=== PATIENT | female | born 1940 | race Caucasian/White ===

== ENCOUNTER → 2016-04-27 | Outpatient (CLI) | payer MEDICARE, OTHER ==
[2016-04-27 12:35] LABS: PROTHROMBIN TIME 27.8 SEC (11.4-15.4)
== END ==
LOC: OD 11:31
PROVIDERS: ATTEND Internal Medicine
DX: Z79.01 Long term (current) use of anticoagulants (principal)
CPT/HCPCS: 36415; 85610

== ENCOUNTER → 2016-05-25 | Outpatient (CLI) | payer MEDICARE, OTHER ==
[2016-05-25 12:56] LABS: PROTHROMBIN TIME 30.5 SEC (11.4-15.4)
== END ==
LOC: OD 11:15
PROVIDERS: ATTEND Internal Medicine
DX: Z79.01 Long term (current) use of anticoagulants (principal)
CPT/HCPCS: 36415; 85610

== ENCOUNTER → 2016-06-22 | Outpatient (CLI) | payer MEDICARE, OTHER ==
[2016-06-22 13:18] LABS: PROTHROMBIN TIME 29.4 SEC (11.4-15.4)
== END ==
LOC: OD 12:14
PROVIDERS: ATTEND Internal Medicine
DX: Z79.01 Long term (current) use of anticoagulants (principal)
CPT/HCPCS: 36415; 85610

== ENCOUNTER → 2016-07-20 | Outpatient (CLI) | payer MEDICARE, OTHER ==
[2016-07-20 13:29] LABS: PROTHROMBIN TIME 32.1 SEC (11.4-15.4)
== END ==
LOC: OD 12:38
PROVIDERS: ATTEND Internal Medicine
DX: Z79.01 Long term (current) use of anticoagulants (principal)
CPT/HCPCS: 36415; 85610

== ENCOUNTER → 2016-07-27 | Outpatient (CLI) | payer MEDICARE, OTHER ==
[2016-07-27 13:28] LABS: PROTHROMBIN TIME 33.7 SEC (11.4-15.4)
== END ==
LOC: OD 12:49
PROVIDERS: ATTEND Internal Medicine
DX: Z79.01 Long term (current) use of anticoagulants (principal)
CPT/HCPCS: 36415; 85610

== ENCOUNTER → 2016-08-10 | Outpatient (CLI) | payer MEDICARE, OTHER ==
[2016-08-10 14:35] LABS: PROTHROMBIN TIME 26.9 SEC (11.4-15.4)
== END ==
LOC: OD 12:44
PROVIDERS: ATTEND Internal Medicine
DX: Z79.01 Long term (current) use of anticoagulants (principal)
CPT/HCPCS: 36415; 85610

== ENCOUNTER → 2016-09-07 | Outpatient (CLI) | payer MEDICARE, OTHER ==
[2016-09-07 15:35] LABS: PROTHROMBIN TIME 24.7 SEC (11.4-15.4)
== END ==
LOC: OD 14:41
PROVIDERS: ATTEND Internal Medicine
DX: Z79.01 Long term (current) use of anticoagulants (principal); Z51.81 Encounter for therapeutic drug level monitoring
CPT/HCPCS: 36415; 85610

== ENCOUNTER 2016-09-18 15:38 | Inpatient (IN) | payer MEDICARE, OTHER ==
[2016-09-18] MEDS ORDERED: NORMAL SALINE 1000 ML 1,000 ML IV ONE ×2 (16:14→21:05)
--- NOTE | 2016-09-18 16:15 | ER Document Report ---
ED Medical Screen (RME) - General Chief Complaint: Nausea Stated Complaint: NAUSEA,DIARRHEA Time Seen by Provider: 09/18/16 16:11 Mode of Arrival: Ambulatory Information source: Patient TRAVEL OUTSIDE OF THE [place] IN LAST 30 DAYS: No - HPI Patient complains to provider of: nausea, diarrhea Onset: Last week - pt with 1 week h/o diarrhea, nausea, anorexia, and difficulty urinating - Related Data Allergies/Adverse Reactions: No Known Allergies Allergy (Verified 09/18/16 15:56) Past Medical History - Social History Chew tobacco use (# tins/day): No Frequency of alcohol use: None Drug Abuse: None - Past Medical History Cardiac Medical History: Reports: Hx Congestive Heart Failure, Hx Hypercholesterolemia, Hx Hypertension Endocrine Medical History: Reports: Hx Diabetes Mellitus Type 1, Hx Diabetes Mellitus Type 2 Renal/ Medical History: Denies: Hx Peritoneal Dialysis GI Medical History: Reports: Hx Gastroesophageal Reflux Disease Psychiatric Medical History: Denies: Hx Depression Past Surgical History: Reports: Hx Breast Surgery - right masectomy, Hx Cardiac Surgery - pacemaker, Hx Hysterectomy - Immunizations Hx Diphtheria, Pertussis, Tetanus Vaccination: Yes Physical Exam - Vital signs Vitals: Temp Pulse Resp BP Pulse Ox 97.4 F 64 20 100/69 96 09/18/16 15:58 09/18/16 15:58 09/18/16 15:58 09/18/16 15:58 09/18/16 15:58 Course - Vital Signs Vital signs: Temp Pulse Resp BP Pulse Ox 97.4 F 64 20 100/69 96 09/18/16 15:58 09/18/16 15:58 09/18/16 15:58 09/18/16 15:58 09/18/16 15:58
[2016-09-18 18:05] LABS: ABSOLUTE LYMPHOCYTES (AUTO) 1.2 10^3/uL (0.5-4.7); ABSOLUTE MONOCYTES (AUTO) 0.4 10^3/uL (0.1-1.4); BASOPHILS % (AUTO) 0.5 % (0-2); EOSINOPHILS % (AUTO) 0.6 % (0-6); HEMATOCRIT 42.2 % (36.0-47.0); HEMOGLOBIN 13.8 g/dL (12.0-15.5); HGB HCT DIFFERENCE -0.8; LYMPHOCYTES % (AUTO) 17.5 % (13-45); MEAN CORPUSCULAR HEMOGLOBIN 34.7 pg (27.0-33.4); MEAN CORPUSCULAR HGB CONC 32.6 g/dL (32.0-36.0); MEAN CORPUSCULAR VOLUME 106 fl (80-97); MONOCYTES % (AUTO) 6.7 % (3-13); RED BLOOD COUNT 3.96 10^6/uL (3.72-5.28); RED CELL DISTRIBUTION WIDTH 12.9 % (11.5-14.0); SEGMENTED NEUTROPHILS % (AUTO) 74.7 % (42-78); WHITE BLOOD COUNT 6.7 10^3/uL (4.0-10.5)
--- NOTE | 2016-09-18 18:37 | RADIOLOGY REPORT (SQ) ---
EXAM DESCRIPTION: ACUTE ABDOMEN SERIES COMPLETED DATE/TIME: 09/18/2016 6:19 pm REASON FOR STUDY: diarrhea, nausea COMPARISON: 11/13/2015 NUMBER OF VIEWS: Three views. TECHNIQUE: Frontal chest, supine abdomen and upright/decubitus abdomen radiographic images acquired. LIMITATIONS: None. FINDINGS: CHEST: Lungs clear of infiltrates. FREE AIR: None. No abnormal gas collections. BOWEL GAS PATTERN: Nonobstructive pattern. No dilated loops or air fluid levels. CALCIFICATIONS: A roughly triangular calcification projects over the superior pole of the left kidney ; this is nonspecific, and may represent renal calculus, calcified lymph node, intestinal contents, o r other. HARDWARE: None in the abdomen. Dual-chamber cardiac pacer is stable in position appearance. Right t horacic surgical changes are likewise unchanged. SOFT TISSUES: No gross mass or suggestion of organomegaly. BONES: No acute fracture. No worrisome bone lesions. OTHER: No other significant finding. IMPRESSION: NO RADIOGRAPHIC EVIDENCE FOR ACUTE ABDOMINAL DISEASE. TECHNICAL DOCUMENTATION: JOB ID: [id number] [employer]- All Rights Reserved
[2016-09-18 18:58] LABS: APPEARANCE,URINE SLIGHTLY-CLOUDY; BILIRUBIN,URINE NEGATIVE (NEGATIVE); GLUCOSE, URINE NEGATIVE (NEGATIVE); KETONES,URINE NEGATIVE (NEGATIVE); LEUKOCYTE ESTERASE,URINE MODERATE (NEGATIVE); NITRITE,URINE NEGATIVE (NEGATIVE); PROTEIN,URINE NEGATIVE (NEGATIVE); UROBILINOGEN,URINE NEGATIVE mg/dL (<2.0)
[2016-09-18] MEDS ORDERED: CALCIUM GLUCONATE 1000 MG/10 ML INJ IV ONE (19:03)
--- NOTE | 2016-09-18 19:09 | ER Document Report ---
ED General - General Chief Complaint: Nausea Stated Complaint: NAUSEA,DIARRHEA Time Seen by Provider: 09/18/16 16:11 Mode of Arrival: Ambulatory Information source: Patient Notes: This is a 75-year-old female with a history of hypertension, hyperlipidemia, diabetes, and CHF with a prior history of renal failure who presents with multiple symptoms today. She states that for the past few days she has felt similar symptoms to when she had renal failure a few years ago. She reports decreased appetite, nausea, one episode of vomiting and diarrhea. Also she states that when she urinates "not much comes out". She denies any fevers or chills. She denies any dysuria. She denies any chest pain or shortness of breath. TRAVEL OUTSIDE OF THE [place] IN LAST 30 DAYS: No - Related Data Allergies/Adverse Reactions: No Known Allergies Allergy (Verified 09/18/16 15:56) Past Medical History - General Information source: Patient - Social History Smoking Status: Never Smoker Chew tobacco use (# tins/day): No Frequency of alcohol use: None Drug Abuse: None Family History: Reviewed & Not Pertinent Patient has suicidal ideation: No Patient has homicidal ideation: No - Past Medical History Cardiac Medical History: Reports: Hx Congestive Heart Failure, Hx Hypercholesterolemia, Hx Hypertension Endocrine Medical History: Reports: Hx Diabetes Mellitus Type 1, Hx Diabetes Mellitus Type 2 Renal/ Medical History: Reports: Hx Renal Insufficiency. Denies: Hx Peritoneal Dialysis GI Medical History: Reports: Hx Gastroesophageal Reflux Disease Psychiatric Medical History: Denies: Hx Depression Past Surgical History: Reports: Hx Breast Surgery - right masectomy, Hx Cardiac Surgery - pacemaker, Hx Hysterectomy - Immunizations Hx Diphtheria, Pertussis, Tetanus Vaccination: Yes Hx Pneumococcal Vaccination: 01/16/13 Review of Systems - Review of Systems Constitutional: See HPI. denies: Chills, Fever EENT: No symptoms reported Cardiovascular: No symptoms reported. denies: Chest pain Respiratory: No symptoms reported Gastrointestinal: See HPI Genitourinary: See HPI. denies: Burning, Dysuria Musculoskeletal: No symptoms reported Skin: No symptoms reported Hematologic/Lymphatic: No symptoms reported Neurological/Psychological: No symptoms reported Physical Exam - Vital signs Vitals: Temp Pulse Resp BP Pulse Ox 97.4 F 64 20 100/69 96 09/18/16 15:58 09/18/16 15:58 09/18/16 15:58 09/18/16 15:58 09/18/16 15:58 - Notes Notes: PHYSICAL EXAMINATION: GENERAL: ELderly female, somewhat pale but well appearing, smiling and conversant, well-nourished and in no acute distress. HEAD: Atraumatic, normocephalic. EYES: Pupils equal round and reactive to light, extraocular movements intact, sclera anicteric, conjunctiva are normal. ENT: nares patent, oropharynx clear without exudates. Moist mucous membranes. NECK: Normal range of motion, supple without lymphadenopathy LUNGS: Breath sounds clear to auscultation bilaterally and equal. No wheezes rales or rhonchi. HEART: Regular rate and rhythm without murmurs ABDOMEN: Soft, nontender, normoactive bowel sounds. EXTREMITIES: Normal range of motion NEUROLOGICAL: Cranial nerves grossly intact. No gross focal motor or sensory deficits appreciated. PSYCH: Normal mood, normal affect. SKIN: Warm, Dry, no rashes or lesions noted. Course - Vital Signs Vital signs: Temp Pulse Resp BP Pulse Ox 97.4 F 64 19 108/53 L 100 09/18/16 15:58 09/18/16 15:58 09/18/16 20:01 09/18/16 20:01 09/18/16 20:01 - Laboratory Result Diagrams: 09/18/16 17:25 09/18/16 20:55 Laboratory results interpreted by me: 09/18/16 09/18/16 09/18/16 17:25 18:34 18:34 MCV 106 H MCH 34.7 H PT APTT Sodium 136.6 L Potassium 7.0 H* Chloride 109 H Carbon Dioxide 12 L BUN 68 H Creatinine 3.39 H Est GFR ( Amer) 16 L Est GFR (Non-Af Amer) 13 L Glucose 159 H Calcium 10.5 H Ur Leukocyte Esterase MODERATE H Urine Ascorbic Acid 40 H Digoxin 09/18/16 09/18/16 09/18/16 18:34 18:34 20:55 MCV MCH PT 23.9 H APTT 37.9 H Sodium Potassium 6.2 H* Chloride 112 H Carbon Dioxide 11 L BUN 63 H Creatinine 3.02 H Est GFR ( Amer) 18 L Est GFR (Non-Af Amer) 15 L Glucose 175 H Calcium Ur Leukocyte Esterase Urine Ascorbic Acid Digoxin 2.70 H* Discharge - Discharge Clinical Impression: Hyperkalemia, Elevated digoxin level Acute renal failure syndrome Qualifiers: Acute renal failure type: unspecified Qualified Code(s): N17.9 - Acute kidney failure, unspecified Condition: Fair Disposition: ADMITTED OBSERVATION Admitting Provider: Hospitalist - Dr. Patel Unit Admitted: [facility]
[2016-09-18 19:10] LABS: ALANINE AMINOTRANSFERASE 31 U/L (9-52); ALBUMIN 4.6 g/dL (3.5-5.0); ALKALINE PHOSPHATASE 59 U/L (38-126); ANION GAP 16 (5-19); ASPARTATE AMINO TRANSFERASE 28 U/L (14-36); BILIRUBIN,DIRECT 0.3 mg/dL (0.0-0.4); BILIRUBIN,TOTAL 0.8 mg/dL (0.2-1.3); BLOOD UREA NITROGEN 68 mg/dL (7-20); CALCIUM 10.5 mg/dL (8.4-10.2); CARBON DIOXIDE 12 mmol/L (22-30); CHLORIDE 109 mmol/L (98-107); CREATININE RESULT 3.39 mg/dL (0.52-1.25); GLUCOSE 159 mg/dL (75-110); SODIUM 136.6 mmol/L (137-145); TOTAL PROTEIN 8.1 g/dL (6.3-8.2)
[2016-09-18] MEDS ORDERED: SODIUM POLYSTYRENE SULFONATE 15 GM/60 ML PO ONE (19:23)
[2016-09-18] MEDS ORDERED: DEXTROSE 50%-WATER 25 GM/50 ML DISP.SYRIN IV ONE (19:23)
[2016-09-18] MEDS ORDERED: INSULIN REG, HUMAN 100 UNIT/ML 3 ML VIAL (PYX) IV ONE (19:23)
[2016-09-18] MEDS ORDERED: ALBUTEROL SULFATE 0.083% NEB 2.5 MG/3 ML AMPUL NEB ONE (19:24)
[2016-09-18 19:32] LABS: PARTIAL THROMBOPLASTIN TIME 37.9 SEC (23.5-35.8); PROTHROMBIN TIME 23.9 SEC (11.4-15.4)
[2016-09-18 19:34] LABS: MAGNESIUM 1.7 mg/dL (1.6-2.3)
[2016-09-18 19:49] LABS: DIGOXIN 2.7 ng/mL (0.8-2.0)
[2016-09-18 21:20] LABS: ANION GAP 16 (5-19); BLOOD UREA NITROGEN 63 mg/dL (7-20); CALCIUM 10.2 mg/dL (8.4-10.2); CARBON DIOXIDE 11 mmol/L (22-30); CHLORIDE 112 mmol/L (98-107); CREATININE RESULT 3.02 mg/dL (0.52-1.25); GLUCOSE 175 mg/dL (75-110); SODIUM 138.7 mmol/L (137-145)
[2016-09-18 21:24] LABS: POTASSIUM 6.2 mmol/L (3.6-5.0)
[2016-09-18] MEDS ORDERED: CEFTRIAXONE 1 GM/D5W RTU 50 ML IV ONE (21:45)
[2016-09-18] MEDS ORDERED: INSULIN LISPRO 100 UNIT/ML 3 ML VIAL SUBCUT PRN (23:35)
[2016-09-18] MEDS ORDERED: GLUCAGON,HUMAN RECOMB 1 MG INJ IM PRN (23:35)
[2016-09-18] MEDS ORDERED: DEXTROSE 40% GEL 15 GM TUBE PO PRN ×2 (23:35)
[2016-09-18] MEDS ORDERED: DEXTROSE 50%-WATER 25 GM/50 ML DISP.SYRIN IV PRN ×2 (23:35)
[2016-09-18] MEDS ORDERED: NORMAL SALINE 1000 ML 1,000 ML IV PRN (23:37)
[2016-09-18] MEDS ORDERED: ACETAMINOPHEN 325 MG TABLET PO PRN (23:42)
[2016-09-18] MEDS ORDERED: PHARMACY COMMUNICATION ORDER MC SCH (23:45)
--- NOTE | 2016-09-19 00:04 | PDOC H&P ---
History of Present Illness Admission Date/PCP: 09/18/16 21:55 COLIN LUIS, Patient complains of: n/v/d History of Present Illness: YOSHI CLAY is a 75 year old female with underlying stage III chronic kidney disease, hypertension, atrial fibrillation, on Coumadin for same , hyperlipidemia, type 2 diabetes mellitus, and reported congestive heart failure who presents to the emergency room for evaluation of above complaints. Patient has been discussed with emergency room physician who evaluated the patient. She describes a several day history of poor appetite, nausea, with one episode of vomiting, and diarrhea, along with general feeling of weakness and decreased oral intake. States that when she passes urine, "not much comes out." States urine is darker than usual. However, denies fever or chills, dysuria, chest or abdominal pain. No shortness of breath. States her symptoms are quite similar to an episode of worsening of her chronic kidney disease several years ago. Has been given 1 L of IV fluid and states she already feels better. Admission labs remarkable for worsening of her chronic kidney disease, along with hyperkalemia. Hospitalized on her primary care provider's service February 12 - February 19, 2014 with final diagnoses including sepsis, acute renal failure, and dehydration. History and physical and discharge summary have been reviewed. Laboratory results are listed in [employer] and are reviewed. X-ray summary results are listed below, with full report(s) reviewed. . EKG reviewed. Social history/personal habits: . 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 No use of alcohol tobacco or illicit drugs. No known drug allergies. Home medications initially autopopulated into [employer] may not accurately reflect patient's true medications, dosages, and/or frequencies. Emergency room nurse to reconcile medications, with patient having brought a handwritten copy of her medication list with her. REVIEW OF SYSTEMS: Constitutional: See history and present illness. Eyes: Wears glasses. ENT: No swallowing problems or complaints. Denies hearing loss. Pulmonary: No current complaints. Cardiovascular: No current complaints, including chest pain. Gastrointestinal: See history and present illness. Skin: No current complaints, including rashes. Hematologic: Easy bruising. Neurologic: No current complaints, including numbness or tingling. Musculoskeletal: No current or chronic joint complaints, such as arthritis. Psychiatric: Denies anxiety or depression. Endocrine: No current complaints, including polyuria. Genitourinary: See history and present illness. PHYSICAL EXAMINATION: 5 feet 6 inches tall. 68.1 kg. BMI 24.2 kg/m. Pulse 81 and regular. 100% saturation on room air. Respirations are 18 and unlabored. Blood pressure 96/ 61. Temperature 98.7. Well-nourished well-developed female appearing approximately her stated age. Pleasant awake alert and cooperative. Rather talkative. Mildly anxious, without agitation. is present at her side; patient approves. Skin is warm and dry. No grossly obvious evidence of rash in areas of skin examined. No subcutaneous nodules palpated. ENT: Hearing grossly normal to normal conversation. Tongue midline on protrusion pink and slightly moist. Eyes: No scleral icterus. Pupils equal and reactive to light at 4 mm. [place] conjunctivae. Neck is supple and nontender to gentle active range of motion and palpation. Midline trachea. No palpable thyroid nodule mass enlargement or tenderness. Lymphatic: No palpable cervical or clavicular nodes. Neck and lymphatic exams limited by patient body habitus. Psychiatric: Reasonable insight into acute and chronic medical issues. Oriented to time location and why here. Lungs: Auscultation reveals clear and equal breath sounds bilaterally. No use of accessory respiratory muscles. Cardiovascular: Heart regular rate and rhythm, without gallop murmur or rub. No carotid or abdominal aortic bruits. No ankle or pedal edema. Faintly palpable dorsalis pedis pulses. Abdomen:soft slightly distended nontender with positive bowel sounds. Unable to adequately evaluate abdomen for masses or organomegaly due to distention. Extremities: Feet are warm and dry. No calf tenderness to compression. No grossly obvious visual evidence of calf swelling. Gentle manipulation of lower extremities fails to reveal any obvious evidence of injury or instability to knees hips or ankles. Neurologic: Moves upper extremities grossly normally. Patellar reflexes absent. Absent Babinski. Light touch is intact at feet. Dorsiflexion and plantarflexion of feet 5 / 5 and symmetric. Past Medical History Cardiac Medical History: Reports: Atrial Fibrillation - On Coumadin, Congestive Heart Failure - Reported; no echocardiogram results in our system., Hyperlipidema, Hypertension Denies: DVT, Myocardial Infarction, Pulmonary Embolism Pulmonary Medical History: Denies: Asthma, Chronic Obstructive Pulmonary Disease (COPD), Sleep Apnea EENT Medical History: Reports: Eyes - Glasses Denies: Ears, Throat Neurological Medical History: Denies: Hemorrhagic CVA, Ischemic CVA, Seizures Endocrine Medical History: Reports: Diabetes Mellitus Type 2 Denies: Diabetes Mellitus Type 1, Hyperthyroidism, Hypothyroidism Renal/ Medical History: Reports: Chronic Kidney Disease - Stage III; not 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 GI Medical History: Denies: Cirrhosis, Gastroesophageal Reflux Disease, Hepatitis, Peptic Ulcer Disease Musculoskeltal Medical History: Denies: Arthritis Skin Medical History: Reports: None Psychiatric Medical History: Denies: Alcohol Dependency, Depression, General Anxiety Disorder, Substance Abuse, Tobacco Dependency Hematology: Reports: Other - Easy bruising Infectious Medical History: Denies: Clostridium Difficile, Hepatitis B, Hepatitis C, Methicillin- Resistant Staph Aureus Past Surgical History Past Surgical History: Reports: Hysterectomy Social History Information Source: Patient, Emergency Med Personnel, REPLACED BY [facility] Records Lives with: Spouse/Significant other Smoking Status: Never Smoker Frequency of Alcohol Use: None Hx Recreational Drug Use: No Drugs: None Hx Prescription Drug Abuse: No - Advance Directive Resuscitation Status: Full Code Surrogate healthcare decision maker:: Family History Family History: Reviewed & Not Pertinent Parental Family History Reviewed: Yes - Father of heart attack; mother of urinary tract infection. Children Family History Reviewed: Yes - Healthy Sibling(s) Family History Reviewed.: Yes - 3 siblings ; surviving sibling with chronic kidney disease. Medication/Allergy Home Medications: RX: Amlodipine Besylate [Norvasc 5 mg Tablet] 5 mg PO DAILY 09/20/16 RX: Ascorbic Acid [Vitamin C 500 mg Tablet] 500 mg PO BID 09/20/16 RX: Atorvastatin Calcium [Lipitor 10 mg Tablet] 10 mg PO Q2D 09/20/16 RX: Calcium Carbonate/Vitamin D3 [Os-Luis 500-Vit D3 200 Caplet] 1 tab PO MEALS 09/20/16 RX: Digoxin [Lanoxin 0.125 mg Tablet] 0.125 mg PO DAILY 09/20/16 RX: Ferrous Sulfate [Feosol 325 mg Tablet] 325 mg PO DAILY 09/20/16 RX: Glipizide [Glucotrol Xl 2.5 mg Tab.er] 2.5 mg PO DAILY 09/20/16 RX: Magnesium Oxide [Mag-Ox 400 mg Tablet] 400 mg PO BID 09/20/16 RX: Metoprolol Tartrate [Lopressor 100 mg Tablet] 100 mg PO Q12 09/20/16 RX: Multivits-Min/Iron/FA/Lutein [Centrum Silver Women Tablet] 1 tab PO DAILY RX: Niacin [Niacin ER] 2,000 mg PO QHS 09/20/16 RX: Potassium Chloride [Klor-Con 10] 10 meq PO BID 09/20/16 RX: Spironolactone [Aldactone 25 mg Tablet] 25 mg PO DAILY 09/20/16 RX: Telmisartan [Micardis 80 mg Tablet] 80 mg PO DAILY 09/20/16 RX: Warfarin Sodium [Coumadin 2.5 mg Tablet] 2.5 mg PO MOTUWETHFRSA 09/20/16 RX: Warfarin Sodium [Coumadin 2.5 mg Tablet] 5 mg PO GARY 09/20/16 Allergies/Adverse Reactions: No Known Allergies Allergy (Verified 09/18/16 15:56) Physical Exam Vital Signs: Temp Pulse Resp BP Pulse Ox 98.7 F 64 16 96/61 L 97 09/18/16 22:00 09/18/16 15:58 09/18/16 22:33 09/18/16 22:33 09/18/16 22:33 Results Impressions: Acute Abdomen Series 09/18/16 16:14 IMPRESSION: NO RADIOGRAPHIC EVIDENCE FOR ACUTE ABDOMINAL DISEASE. Assessment & Plan - Diagnosis (1) Acute worsening of stage 3 chronic kidney disease Is this a current diagnosis for this admission?: YesPlan: Suspect due primarily to dehydration from mild vomiting and diarrhea, along with decreased p.o. intake for the past several days. IV fluid. Serial chemistry. Renal ultrasound. I have strongly encouraged patient not to get out of bed without notifying staff , to avoid a fall with injury. Knee high SCDs for DVT prophylaxis; with patient anticoagulated on Coumadin, no need for Lovenox or heparin. Impression and plans were discussed with patient and , both of whom concur. Time spent in evaluation and management of patient: 68 minutes. (2) Elevated digoxin level Is this a current diagnosis for this admission?: YesPlan: Repeat dig level. We will obviously hold digoxin dose. (3) Hyperkalemia Is this a current diagnosis for this admission?: YesPlan: Serial chemistry. Decreasing with treatment so far. (4) Urinary tract infectious disease Qualifiers: Urinary tract infection type: site unspecified Is this a current diagnosis for this admission?: YesPlan: Blood and urine cultures. Rocephin. (5) Diabetes mellitus type 2 in nonobese Is this a current diagnosis for this admission?: YesPlan: Diabetic cardiac diet. Accu-Cheks with appropriate sliding scale coverage. Resume home medications as appropriate once these have been determined and reviewed. (6) Anticoagulated Is this a current diagnosis for this admission?: YesPlan: With patient on Rocephin, will repeat PT/INR in the morning. Resume home medications as appropriate once these have been determined and reviewed. (7) Atrial fibrillation Qualifiers: Atrial fibrillation type: unspecified Qualified Code(s): I48.91 - Unspecified atrial fibrillation Is this a current diagnosis for this admission?: YesPlan: Paced rhythm at present. Resume home medications as appropriate once these have been determined and reviewed.
[2016-09-19 01:51] LABS: ANION GAP 14 (5-19); BLOOD UREA NITROGEN 60 mg/dL (7-20); CALCIUM 9.6 mg/dL (8.4-10.2); CHLORIDE 117 mmol/L (98-107); CREATININE RESULT 2.51 mg/dL (0.52-1.25); GLUCOSE 101 mg/dL (75-110); SODIUM 140.6 mmol/L (137-145)
[2016-09-19 02:21] LABS: CARBON DIOXIDE 10 mmol/L (22-30); POTASSIUM 6.1 mmol/L (3.6-5.0)
--- NOTE | 2016-09-19 02:34 | RADIOLOGY REPORT (SQ) ---
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 TECHNIQUE: Grayscale images acquired of the kidneys and bladder and recorded on PACS. Additional kristin ected color Doppler images recorded. LIMITATIONS: None. FINDINGS: RIGHT KIDNEY: Measures 11.5 x 4.9 x 4.5 cm. Increased cortical echogenicity. No hydronephr osis. No calcifications. LEFT KIDNEY: Measures 10.7 x 4.5 x 4.6 cm. Increased cortical echogenicity. There is a 1.6 x 1.4 x 1.1 cm cyst. No hydronephrosis. No calcifications. BLADDER: Partially distended. The ureteral jets were not visualized at this time. IMPRESSION: No hydronephrosis. Small left renal cyst. Increased bilateral renal cortical echogenic ity, may be seen with medical renal disease. TECHNICAL DOCUMENTATION: JOB ID: [id number] [employer]- All Rights Reserved
[2016-09-19] MEDS ORDERED: DEXTROSE 50%-WATER 25 GM/50 ML DISP.SYRIN IV ONE (03:00)
[2016-09-19] MEDS ORDERED: INSULIN REG, HUMAN 100 UNIT/ML 3 ML VIAL (PYX) IV ONE (03:00)
[2016-09-19 08:28] LABS: ANION GAP 9 (5-19); BLOOD UREA NITROGEN 52 mg/dL (7-20); CALCIUM 9.4 mg/dL (8.4-10.2); CARBON DIOXIDE 12 mmol/L (22-30); CHLORIDE 121 mmol/L (98-107); GLUCOSE 80 mg/dL (75-110); POTASSIUM 5.4 mmol/L (3.6-5.0); SODIUM 142.3 mmol/L (137-145)
--- NOTE | 2016-09-19 09:20 | EKG REPORT ---
SEVERITY:- ABNORMAL ECG - VENTRICULAR-PACED RHYTHM : Confirmed by: Marlon Dougherty 19-Sep-2016 09:19:45
[2016-09-19] MEDS: AMLODIPINE BESYLATE 5 MG TABLET PO SCH (09:48)
[2016-09-19] MEDS: FERROUS SULFATE 325 MG TABLET PO SCH (09:49)
[2016-09-19] MEDS: ATORVASTATIN CALCIUM 20 MG TABLET PO SCH (09:49)
[2016-09-19] MEDS: METOPROLOL TARTRATE 100 MG TABLET PO SCH ×2 (09:49→18:34)
[2016-09-19] MEDS ORDERED: GLIPIZIDE XL 2.5 MG TAB.ER.24 PO ONE (14:00)
[2016-09-19] MEDS: NORMAL SALINE 1000 ML 1,000 ML IV PRN (14:34)
--- NOTE | 2016-09-19 16:18 | PROGRESS NOTE E ---
Progress Note NAME: YOSHI CLAY : 1940 AGE: 75Y DATE: 09/19/2016 ROOM: 324 SUBJECTIVE: The patient is lying in bed. She states that she feels better now than when she came in. The patient denies today any nausea or vomiting, no diarrhea, shortness of breath, dizziness or chest pain. The patient's symptoms of vomiting and diarrhea have resolved. The patient has been afebrile. Her blood pressures have been in a good range, and the patient does not voice any other concerns at this time. REVIEW OF SYSTEMS: Rest of review of systems is negative. MEDICATIONS: Medications have been reviewed. OBJECTIVE: GENERAL: The patient is a well-developed, well-nourished, very pleasant 75-year-old female who is awake, alert and oriented to person, place, time and situation. She is verbal and conversational and does to appear to be in any acute distress. VITAL SIGNS: Temperature is 97.3, pulse 83, respirations 18, blood pressure 104/40, oxygen saturation is 99% on room air. SKIN: Warm and dry. No rashes, not diaphoretic. HEENT: Conjunctivae are pink. Tongue is midline. No JVD. CARDIOVASCULAR: Heart is regular. There is no murmur or rub. CHEST: Clear, symmetrical and unlabored. ABDOMEN: Soft, nontender, nondistended. BACK: No CVA tenderness or sacral edema. EXTREMITIES: No clubbing, cyanosis or edema. PSYCHIATRIC: Appropriate affect, pleasant mood. DIAGNOSTIC DATA: Lab values are as follows: Hematology obtained on 09/18/2016: WBC is 6.7, hemoglobin 13.8, hematocrit 42.2, and platelet count is 181,000. Coagulation obtained on 09/19/2016: PT 30, INR 2.7. Chemistries obtained on 09/18/2016: Sodium is 142, potassium 5.4, chloride 121, carbon dioxide 12, BUN 52, creatinine 2.1, glucose 80, calcium 9.4. Toxicology obtained on 09/18/2016: Digoxin level is 2.7. Urine culture obtained on 09/18/2016 is pending. Blood cultures obtained on 09/19/2016 is pending. Stool culture obtained on 09/19/2016 is pending. IMPRESSION AND PLAN: 1. ACUTE RENAL FAILURE. Will continue to hydrate. It appears that the patient's baseline creatinine is in the 1.5. She has improved significantly from 3.3 as she came in. We will continue to gently hydrate, repeat chemistries in the a.m. and follow. Will hold spironolactone, lisinopril and Micardis at this time. 2. HYPERKALEMIA SECONDARY TO #1. Once again, we will hold KENYETTA and ARB as well as potassium supplementation. Repeat in the a.m. 3. CHRONIC KIDNEY DISEASE STAGE 3. Once again, it appears that the patient's baseline creatinine is in the 1.5 range according to outpatient labs from 2016. 4. NAUSEA AND VOMITING. Possibly just a gastroenteritis. Those symptoms have appeared to have resolved at this time. Stool studies are pending. 5. DIG TOXICITY. Will hold dig for now, hydrate and repeat level in the a.m. 6. HYPERTENSION. The patient has actually been hypotensive but this is improving with volume. Most blood pressure medicines are on hold. Will watch this closely for rebounding. 7. ATRIAL FIBRILLATION. The patient is currently ventricularly paced. Will continue anticoagulation and beta-franko and follow. 8. HYPERLIPIDEMIA. Will continue atorvastatin. 9. DIABETES MELLITUS TYPE 2. Blood sugars have been in a good range. Will continue home Glipizide as well as sliding scale coverage. 10. DVT PROPHYLAXIS. The patient is therapeutic on Coumadin. Will repeat INR in the a.m. 11. POSSIBLE URINARY TRACT INFECTION. Currently awaiting urine culture. Will continue ceftriaxone for now and follow. DISPOSITION: The patient is a FULL CODE. Pending the patient's symptomatology and diagnostic findings, will re-evaluate in the a.m. TIME: Time spent on this followup including assessment, plan, physical examination, patient education and review of previous records is 35 minutes. DICTATING PHYSICIAN: COLIN SANABRIA NP [id number] PHY#: [id number] ID: [id number] JOB#: [id number] ACCT: [id number] cc: >
[2016-09-19] MEDS: WARFARIN SODIUM 2.5 MG TABLET PO SCH (21:47)
[2016-09-19] MEDS: CEFTRIAXONE 1 GM/D5W RTU 1 GM/50 ML RTUPB IV SCH (21:47)
[2016-09-20] MEDS: NORMAL SALINE 1000 ML 1,000 ML IV PRN (06:10)
[2016-09-20 07:06] LABS: ANION GAP 10 (5-19); CARBON DIOXIDE 13 mmol/L (22-30); CHLORIDE 120 mmol/L (98-107); CREATININE RESULT 1.34 mg/dL (0.52-1.25); GLUCOSE 89 mg/dL (75-110); SODIUM 142.9 mmol/L (137-145)
[2016-09-20 07:18] LABS: PROTHROMBIN TIME 27.5 SEC (11.4-15.4)
[2016-09-20 07:25] LABS: BLOOD UREA NITROGEN 32 mg/dL (7-20)
[2016-09-20] MEDS: ATORVASTATIN CALCIUM 20 MG TABLET PO SCH (09:40)
[2016-09-20] MEDS: FERROUS SULFATE 325 MG TABLET PO SCH (09:41)
[2016-09-20] MEDS: MAGNESIUM SULFATE/D5W 1 GM/100 ML RTUPB IV SCH ×2 (09:43→11:12)
[2016-09-20] MEDS: AMLODIPINE BESYLATE 5 MG TABLET PO SCH (09:44)
[2016-09-20] MEDS: GLIPIZIDE XL 2.5 MG TAB.ER.24 PO SCH (09:44)
[2016-09-20] MEDS: METOPROLOL TARTRATE 100 MG TABLET PO SCH ×2 (09:44→17:23)
--- NOTE | 2016-09-20 14:58 | PROGRESS NOTE E ---
Progress Note NAME: YOSHI CLAY : 1940 AGE: 75Y DATE: 09/20/2016 ROOM: 324 SUBJECTIVE: The patient is currently lying in bed. She states she feels much better today. All of her symptoms have resolved. She denies any nausea, vomiting or diarrhea. No shortness of breath, dizziness, chest pain. No fevers or chills. The patient has been afebrile. Her blood pressure has been in a good range. The patient does not voice any other concerns at this time. REVIEW OF SYSTEMS: The rest of the review of systems is negative. MEDICATIONS: Medications have been reviewed. OBJECTIVE: The patient is a 75-year-old female who is awake, alert, and oriented to person, place, time, and situation. She is verbal, conversational, ambulatory and does not appear to be in any acute distress. VITAL SIGNS: Temperature is 97.4, pulse 81, respirations 20, blood pressure 101/50, oxygen saturation is 98% on room air. SKIN: Warm and dry. No rashes. Not diaphoretic. HEENT: Pupils equal, round and reactive to light and accommodation. Conjunctivae are pale. No JVP CARDIOVASCULAR: Heart is regular. There is no murmur or rub. CHEST: Clear, symmetrical and unlabored. ABDOMEN: Soft, nontender, nondistended. BACK: No CVA tenderness or sacral edema. EXTREMITIES: No clubbing, cyanosis or edema. DIAGNOSTICS: Lab values are as follows. Chemistry obtained on 09/20/2016: Sodium is 142, potassium 5.0, chloride is 102, carbon dioxide 13, BUN 32, creatinine 1.34, glucose 99, calcium is 9.0, and magnesium is 1.0. ASSESSMENT: 1. ACUTE RENAL FAILURE. It appears that the patient's baseline creatinine is in the 1.5 range. She is improved significantly. We will continue to gently hydrate overnight. At this time, spironolactone, lisinopril, and Micardis are on hold. 2. HYPERKALEMIA SECONDARY TO #1. Once again KENYETTA, ARB and potassium supplementation are on hold. 3. HYPOMAGNESEMIA. This has been repleted. We will repeat magnesium level this afternoon and follow. 4. CHRONIC KIDNEY DISEASE, STAGE 3. The patient is followed outpatient by Dr. Perez. She needs to follow with him at discharge. It appears her baseline is in the 1.5 range, most likely this was caused by an acute insult. 5. NAUSEA AND VOMITING. I feel the patient most likely just had gastroenteritis. She responded very well to fluids, do not think this is uremic event. However, she is comfortable following the Nephrology in an outpatient setting. 6. DIGOXIN TOXICITY. Digoxin is on hold for now. We will repeat her level and follow. 7. HYPERTENSION. The patient was actually hypotensive, but this is improved with volume. Watch blood pressure closely and follow. 8. ATRIAL FIBRILLATION. The patient is currently ventricularly paced. We will continue her anticoagulation and beta-franko and follow. 9. HYPERLIPIDEMIA. We will continue atorvastatin. 10. DIABETES MELLITUS, TYPE 2. Blood sugars have been in good range. Continue meds as well as sliding scale coverage. 11. DVT PROPHYLAXIS. The patient is therapeutic on Coumadin. 12. METABOLIC ACIDOSIS. The patient's CO2 is still quite high; hopefully, this will improve with volume and we will defer bicarb for now. DISPOSITION: The patient is a FULL CODE. Pending patient's symptomatology and diagnostic findings, most likely the patient can be discharged in the a.m. if there is no electrolyte derangement. Time spent on this followup including assessment, plan, physical examination, patient education, and family meeting is 25 minutes. DICTATING PHYSICIAN: COLIN SANABRIA NP [id number] PHY#: [id number] ID: [id number] JOB#: [id number] ACCT: [id number] cc: >
[2016-09-20 16:05] LABS: ANION GAP 11 (5-19); BLOOD UREA NITROGEN 28 mg/dL (7-20); CALCIUM 9.2 mg/dL (8.4-10.2); CARBON DIOXIDE 15 mmol/L (22-30); CHLORIDE 117 mmol/L (98-107); CREATININE RESULT 1.15 mg/dL (0.52-1.25); GLUCOSE 105 mg/dL (75-110); MAGNESIUM 1.7 mg/dL (1.6-2.3); POTASSIUM 5.5 mmol/L (3.6-5.0); SODIUM 142.6 mmol/L (137-145)
[2016-09-20] MEDS: WARFARIN SODIUM 2.5 MG TABLET PO SCH (21:58)
[2016-09-20] MEDS: CEFTRIAXONE 1 GM/D5W RTU 1 GM/50 ML RTUPB IV SCH (21:58)
[2016-09-21 06:13] LABS: ALANINE AMINOTRANSFERASE 28 U/L (9-52); ALBUMIN 3.4 g/dL (3.5-5.0); ALKALINE PHOSPHATASE 59 U/L (38-126); ANION GAP 11 (5-19); ASPARTATE AMINO TRANSFERASE 27 U/L (14-36); BILIRUBIN,DIRECT 0.2 mg/dL (0.0-0.4); BILIRUBIN,TOTAL 0.4 mg/dL (0.2-1.3); BLOOD UREA NITROGEN 22 mg/dL (7-20); CALCIUM 9.2 mg/dL (8.4-10.2); CARBON DIOXIDE 15 mmol/L (22-30); CHLORIDE 117 mmol/L (98-107); CREATININE RESULT 1.08 mg/dL (0.52-1.25); GLUCOSE 89 mg/dL (75-110); MAGNESIUM 1.4 mg/dL (1.6-2.3); POTASSIUM 4.9 mmol/L (3.6-5.0); SODIUM 143.4 mmol/L (137-145); TOTAL PROTEIN 6.4 g/dL (6.3-8.2)
--- NOTE | 2016-09-21 08:43 | PDOC DISCHARGE SUMMARY ---
General - Admit/Disc Date/PCP Admission Date/Primary Care Provider: 09/19/16 08:02 COLIN LUIS, Discharge Date: 09/21/16 - Discharge Diagnosis (1) Acute renal failure Is this a current diagnosis for this admission?: Yes (2) Elevated digoxin level Is this a current diagnosis for this admission?: Yes (3) Dehydration Is this a current diagnosis for this admission?: Yes (5) Atrial fibrillation Is this a current diagnosis for this admission?: Yes - Additional Information Resuscitation Status: Full Code Discharge Diet: Diabetic Discharge Activity: Activity As Tolerated Home Medications: Amlodipine Besylate [Norvasc 5 mg Tablet] 5 mg PO DAILY 09/20/16 Ascorbic Acid [Vitamin C 500 mg Tablet] 500 mg PO BID 09/20/16 Atorvastatin Calcium [Lipitor 10 mg Tablet] 10 mg PO Q2D 09/20/16 Calcium Carbonate/Vitamin D3 [Os-Luis 500-Vit D3 200 Caplet] 1 tab PO MEALS 09/20 Digoxin [Lanoxin 0.125 mg Tablet] 0.125 mg PO DAILY 09/20/16 Ferrous Sulfate [Feosol 325 mg Tablet] 325 mg PO DAILY 09/20/16 Glipizide [Glucotrol Xl 2.5 mg Tab.er] 2.5 mg PO DAILY 09/20/16 Magnesium Oxide [Mag-Ox 400 mg Tablet] 400 mg PO BID 09/20/16 Metoprolol Tartrate [Lopressor 100 mg Tablet] 100 mg PO Q12 09/20/16 Multivits-Min/Iron/FA/Lutein [Centrum Silver Women Tablet] 1 tab PO DAILY Niacin [Niacin ER] 2,000 mg PO QHS 09/20/16 Potassium Chloride [Klor-Con 10] 10 meq PO BID 09/20/16 Spironolactone [Aldactone 25 mg Tablet] 25 mg PO DAILY 09/20/16 Telmisartan [Micardis 80 mg Tablet] 80 mg PO DAILY 09/20/16 Warfarin Sodium [Coumadin 2.5 mg Tablet] 2.5 mg PO MOTUWETHFRSA 09/20/16 Warfarin Sodium [Coumadin 2.5 mg Tablet] 5 mg PO GARY 09/20/16 History of Present Illness History of Present Illness: YOSHI CLAY is a 75 year old female Hospital Course Hospital Course: The patient did well during the hospitalization. She was well hydrated. Her digoxin level has decreased down 0.9. Her creatinine has improved to normal levels. Her nausea vomiting and diarrhea have resolved. A urinary tract infection was controlled. Her blood sugars were well controlled. She continued to improve over the next several days on the day of discharge she appeared comfortable in no acute distress vital signs stable neck supple no JVD no bruits chest clear to auscultation and percussion heart S1-S2 irregularly irregular abdomen soft bowel sounds positive. Physical Exam Vital Signs: Temp Pulse Resp BP Pulse Ox 98.1 F 83 19 107/74 98 09/21/16 07:29 09/21/16 07:29 09/21/16 07:29 09/21/16 07:29 09/21/16 07:29 Intake & Output 09/20/16 09/21/16 09/22/16 06:59 06:59 06:59 Intake Total 3220 2291 Output Total 2300 3200 Balance 920 -909 Weight 68 kg 73.4 kg General appearance: PRESENT: no acute distress Head exam: PRESENT: atraumatic Eye exam: PRESENT: conjunctiva pink Neck exam: ABSENT: carotid bruit Respiratory exam: PRESENT: clear to auscultation elisabeth Cardiovascular exam: PRESENT: irregular rhythm Pulses: PRESENT: +1 pedal pulses bilateral GI/Abdominal exam: PRESENT: normal bowel sounds, soft Extremities exam: PRESENT: full ROM Musculoskeletal exam: PRESENT: ambulatory Neurological exam: PRESENT: alert, awake Results Laboratory Results: 09/21/16 05:04 09/20/16 09/21/16 15:42 05:04 Sodium 142.6 143.4 Potassium 5.5 H 4.9 Chloride 117 H 117 H Carbon Dioxide 15 L 15 L Anion Gap 11 11 BUN 28 H 22 H Creatinine 1.15 1.08 Est GFR ( Amer) 56 L > 60 Est GFR (Non-Af Amer) 46 L 50 L Glucose 105 89 Calcium 9.2 9.2 Magnesium 1.7 1.4 L Total Bilirubin 0.4 AST 27 ALT 28 Alkaline Phosphatase 59 Total Protein 6.4 Albumin 3.4 L 09/19/16 14:06 Stool - Stool - Final Impressions: Acute Abdomen Series 09/18/16 16:14 IMPRESSION: NO RADIOGRAPHIC EVIDENCE FOR ACUTE ABDOMINAL DISEASE. Renal Ultrasound 09/19/16 00:00 IMPRESSION: No hydronephrosis. Small left renal cyst. Increased bilateral renal cortical echogenicity, may be seen with medical renal disease. Plan Discharge Plan: Discharge home to continue present medications. We will review all of her home medications as an outpatient. Stop lisinopril. Follow-up in the office in 1 week and as needed thank you
[2016-09-21] MEDS: FERROUS SULFATE 325 MG TABLET PO SCH (09:30)
[2016-09-21] MEDS: GLIPIZIDE XL 2.5 MG TAB.ER.24 PO SCH (09:30)
[2016-09-21] MEDS: METOPROLOL TARTRATE 100 MG TABLET PO SCH (09:30)
[2016-09-21] MEDS: ATORVASTATIN CALCIUM 20 MG TABLET PO SCH (09:31)
[2016-09-21] MEDS: AMLODIPINE BESYLATE 5 MG TABLET PO SCH (09:31)
[2016-09-21 10:23] VITALS: BP 95/45
== END 2016-09-21 10:34 | disposition home or self-care (01) | DRG 683 ==
LOC: ER 15:38 → UNDOADMOB 21:55 → EH 21:55 → 3W 23:52 → EH 23:52 → OBSVTOIN 09-19 08:02
PROVIDERS: ADMIT Family Medicine; ATTEND Family Medicine
DX: N17.9 Acute kidney failure, unspecified (principal); E87.2 Acidosis; N39.0 Urinary tract infection, site not specified; I12.9 Hypertensive chronic kidney disease with stage 1 through stage 4 chronic kidney disease, or unspecified chronic kidney disease; E11.22 Type 2 diabetes mellitus with diabetic chronic kidney disease; N18.3 Chronic kidney disease, stage 3 (moderate); T46.0X5A Adverse effect of cardiac-stimulant glycosides and drugs of similar action, initial encounter; E83.42 Hypomagnesemia; I48.91 Unspecified atrial fibrillation; E86.0 Dehydration; E87.5 Hyperkalemia; Z79.01 Long term (current) use of anticoagulants; Z79.4 Long term (current) use of insulin; Z79.899 Other long term (current) drug therapy; Z90.710 Acquired absence of both cervix and uterus
CPT/HCPCS: 36415; 74022; 76770; 80048; 80053; 80162; 81001; 82962; 83735; 85025; 85610; 85730; 87040; 87045; 87086; 87205; 93005; 93010; 94640; 96365; 96375; 99285; G0378; J0696; J1815; J3475; J3490; J7030

== ENCOUNTER → 2016-09-28 | Outpatient (CLI) | payer MEDICARE, OTHER ==
[2016-09-28 13:55] LABS: PROTHROMBIN TIME 19.7 SEC (11.4-15.4)
[2016-09-28 14:24] LABS: ALANINE AMINOTRANSFERASE 36 U/L (9-52); ALKALINE PHOSPHATASE 67 U/L (38-126); ANION GAP 12 (5-19); ASPARTATE AMINO TRANSFERASE 30 U/L (14-36); BILIRUBIN,DIRECT 0.3 mg/dL (0.0-0.4); BILIRUBIN,TOTAL 0.7 mg/dL (0.2-1.3); BLOOD UREA NITROGEN 21 mg/dL (7-20); CALCIUM 9.9 mg/dL (8.4-10.2); CARBON DIOXIDE 24 mmol/L (22-30); CHLORIDE 106 mmol/L (98-107); CHOLESTEROL 131.71 mg/dL (0-200); CREATININE RESULT 1.33 mg/dL (0.52-1.25); Direct HDL 50 mg/dL (>40); GLUCOSE 94 mg/dL (75-110); SODIUM 141.5 mmol/L (137-145); TOTAL PROTEIN 7.2 g/dL (6.3-8.2); TRIGLYCERIDES 231 mg/dL (<150)
[2016-09-28 14:41] LABS: VLDL CHOLESTEROL 46.2 mg/dL (10-31)
[2016-09-28 14:42] LABS: DIRECT LDL < 30 mg/dL (<100)
== END ==
LOC: OD 13:02
PROVIDERS: ATTEND Internal Medicine
DX: Z79.01 Long term (current) use of anticoagulants (principal); E11.9 Type 2 diabetes mellitus without complications; I48.2 Chronic atrial fibrillation; I42.8 Other cardiomyopathies; I36.1 Nonrheumatic tricuspid (valve) insufficiency; I34.0 Nonrheumatic mitral (valve) insufficiency; I10 Essential (primary) hypertension; I25.2 Old myocardial infarction; I44.2 Atrioventricular block, complete; Z95.810 Presence of automatic (implantable) cardiac defibrillator; I27.2 Other secondary pulmonary hypertension; E78.5 Hyperlipidemia, unspecified; Z79.899 Other long term (current) drug therapy
CPT/HCPCS: 36415; 80053; 80061; 83036; 85610

== ENCOUNTER → 2016-10-04 | Outpatient (CLI) | payer MEDICARE, OTHER ==
[2016-10-04 14:11] LABS: ANION GAP 13 (5-19); BLOOD UREA NITROGEN 28 mg/dL (7-20); CARBON DIOXIDE 20 mmol/L (22-30); CHLORIDE 107 mmol/L (98-107); CREATININE RESULT 1.38 mg/dL (0.52-1.25); DIGOXIN 1.31 ng/mL (0.8-2.0); MAGNESIUM 1.9 mg/dL (1.6-2.3); POTASSIUM 5.2 mmol/L (3.6-5.0); SODIUM 139.8 mmol/L (137-145)
== END ==
LOC: OD 12:54
PROVIDERS: ATTEND Internal Medicine
DX: N18.3 Chronic kidney disease, stage 3 (moderate) (principal); R78.89 Finding of other specified substances, not normally found in blood; Z79.01 Long term (current) use of anticoagulants
CPT/HCPCS: 36415; 80051; 80162; 82565; 83735; 84520; 85610

== ENCOUNTER → 2016-10-20 | Outpatient (CLI) | payer MEDICARE, OTHER ==
[2016-10-20 14:23] LABS: PROTHROMBIN TIME 28.2 SEC (11.4-15.4)
== END ==
LOC: OD 12:59
PROVIDERS: ATTEND Internal Medicine
DX: Z79.01 Long term (current) use of anticoagulants (principal); Z51.81 Encounter for therapeutic drug level monitoring
CPT/HCPCS: 36415; 85610

== ENCOUNTER → 2016-11-08 | Outpatient (CLI) | payer MEDICARE, OTHER ==
[2016-11-08 14:20] LABS: PROTHROMBIN TIME 29.9 SEC (11.4-15.4)
== END ==
LOC: OD 13:12
PROVIDERS: ATTEND Internal Medicine
DX: Z79.01 Long term (current) use of anticoagulants (principal)
CPT/HCPCS: 36415; 85610

== ENCOUNTER → 2016-12-06 | Outpatient (CLI) | payer MEDICARE, OTHER | LOC: OD 11:45 | PROVIDERS: ATTEND Internal Medicine | DX: Z79.01 Long term (current) use of anticoagulants (principal); Z51.81 Encounter for therapeutic drug level monitoring | CPT/HCPCS: 36415; 85610 ==

== ENCOUNTER → 2017-01-03 | Outpatient (CLI) | payer MEDICARE, OTHER ==
[2017-01-03 16:23] LABS: PROTHROMBIN TIME 30.1 SEC (11.4-15.4)
== END ==
LOC: OD 14:54
PROVIDERS: ATTEND Internal Medicine
DX: Z51.81 Encounter for therapeutic drug level monitoring (principal); Z79.01 Long term (current) use of anticoagulants
CPT/HCPCS: 36415; 85610

== ENCOUNTER → 2017-01-26 | Outpatient (CLI) | payer MEDICARE, OTHER ==
[2017-01-26 14:20] LABS: ALANINE AMINOTRANSFERASE 32 U/L (9-52); ALBUMIN 4.2 g/dL (3.5-5.0); ALKALINE PHOSPHATASE 80 U/L (38-126); ASPARTATE AMINO TRANSFERASE 27 U/L (14-36); BILIRUBIN,DIRECT 0.5 mg/dL (0.0-0.4); BILIRUBIN,TOTAL 1.1 mg/dL (0.2-1.3); CHOLESTEROL 108.87 mg/dL (0-200); Direct HDL 55 mg/dL (>40); TOTAL PROTEIN 7.2 g/dL (6.3-8.2); TRIGLYCERIDES 139 mg/dL (<150)
[2017-01-26 14:36] LABS: DIRECT LDL < 30 mg/dL (<100)
== END ==
LOC: OD 13:01
PROVIDERS: ATTEND Specialist
DX: I48.2 Chronic atrial fibrillation (principal); Z79.899 Other long term (current) drug therapy; I42.8 Other cardiomyopathies; I36.1 Nonrheumatic tricuspid (valve) insufficiency; I34.0 Nonrheumatic mitral (valve) insufficiency; E78.4 Other hyperlipidemia; I10 Essential (primary) hypertension; I25.2 Old myocardial infarction; I44.2 Atrioventricular block, complete; E11.9 Type 2 diabetes mellitus without complications; Z95.810 Presence of automatic (implantable) cardiac defibrillator
CPT/HCPCS: 36415; 80061; 80076; 83036

== ENCOUNTER → 2017-01-31 | Outpatient (CLI) | payer MEDICARE, OTHER ==
[2017-01-31 14:14] LABS: PROTHROMBIN TIME 30.3 SEC (11.4-15.4)
== END ==
LOC: OD 13:02
PROVIDERS: ATTEND Internal Medicine
DX: Z51.81 Encounter for therapeutic drug level monitoring (principal); Z79.01 Long term (current) use of anticoagulants
CPT/HCPCS: 36415; 85610

== ENCOUNTER → 2017-02-28 | Outpatient (CLI) | payer MEDICARE, OTHER ==
[2017-02-28 15:32] LABS: PROTHROMBIN TIME 31.6 SEC (11.4-15.4)
== END ==
LOC: OD 14:23
PROVIDERS: ATTEND Internal Medicine
DX: Z51.81 Encounter for therapeutic drug level monitoring (principal); Z79.01 Long term (current) use of anticoagulants
CPT/HCPCS: 36415; 85610

== ENCOUNTER → 2017-04-04 | Outpatient (CLI) | payer MEDICARE, OTHER ==
[2017-04-04 13:27] LABS: INTERNATIONAL RATION (INR) 2.97; PROTHROMBIN TIME 32.3 SEC (11.4-15.4)
== END ==
LOC: OD 12:08
PROVIDERS: ATTEND Internal Medicine
DX: I48.91 Unspecified atrial fibrillation (principal); Z79.01 Long term (current) use of anticoagulants
CPT/HCPCS: 36415; 85610

== ENCOUNTER → 2017-05-03 | Outpatient (CLI) | payer MEDICARE, OTHER ==
[2017-05-03 16:19] LABS: INTERNATIONAL RATION (INR) 3.25; PROTHROMBIN TIME 34.7 SEC (11.4-15.4)
== END ==
LOC: OD 14:45
PROVIDERS: ATTEND Internal Medicine
DX: I48.91 Unspecified atrial fibrillation (principal); Z79.01 Long term (current) use of anticoagulants
CPT/HCPCS: 36415; 85610

== ENCOUNTER → 2017-05-17 | Outpatient (CLI) | payer MEDICARE, OTHER ==
[2017-05-17 14:13] LABS: INTERNATIONAL RATION (INR) 1.57; PROTHROMBIN TIME 19.7 SEC (11.4-15.4)
== END ==
LOC: OD 12:31
PROVIDERS: ATTEND Internal Medicine
DX: Z51.81 Encounter for therapeutic drug level monitoring (principal); Z79.01 Long term (current) use of anticoagulants
CPT/HCPCS: 36415; 85610

== ENCOUNTER → 2017-05-31 | Outpatient (CLI) | payer MEDICARE, OTHER ==
[2017-05-31 14:20] LABS: INTERNATIONAL RATION (INR) 1.88; PROTHROMBIN TIME 22.7 SEC (11.4-15.4)
[2017-05-31 14:24] LABS: ALANINE AMINOTRANSFERASE 37 U/L (9-52); ALBUMIN 4.5 g/dL (3.5-5.0); ALKALINE PHOSPHATASE 83 U/L (38-126); ANION GAP 10 (5-19); ASPARTATE AMINO TRANSFERASE 37 U/L (14-36); BILIRUBIN,DIRECT 0.2 mg/dL (0.0-0.4); BILIRUBIN,TOTAL 1.1 mg/dL (0.2-1.3); BLOOD UREA NITROGEN 20 mg/dL (7-20); CALCIUM 10.4 mg/dL (8.4-10.2); CARBON DIOXIDE 28 mmol/L (22-30); CHLORIDE 104 mmol/L (98-107); GLUCOSE 92 mg/dL (75-110); POTASSIUM 4.6 mmol/L (3.6-5.0); SODIUM 141.7 mmol/L (137-145)
[2017-05-31 14:25] LABS: CHOLESTEROL 136.94 mg/dL (0-200); TOTAL PROTEIN 7.3 g/dL (6.3-8.2); TRIGLYCERIDES 237 mg/dL (<150)
[2017-05-31 14:39] LABS: DIRECT LDL < 30 mg/dL (<100); VLDL CHOLESTEROL 47.4 mg/dL (10-31)
== END ==
LOC: OD 13:07
PROVIDERS: ATTEND Internal Medicine
DX: E78.4 Other hyperlipidemia (principal); I42.8 Other cardiomyopathies; I36.1 Nonrheumatic tricuspid (valve) insufficiency; I34.0 Nonrheumatic mitral (valve) insufficiency; I10 Essential (primary) hypertension; I48.91 Unspecified atrial fibrillation; I25.2 Old myocardial infarction; I44.2 Atrioventricular block, complete; E11.9 Type 2 diabetes mellitus without complications; Z79.899 Other long term (current) drug therapy; Z95.810 Presence of automatic (implantable) cardiac defibrillator
CPT/HCPCS: 36415; 80053; 80061; 85610

== ENCOUNTER → 2017-06-14 | Outpatient (CLI) | payer MEDICARE, OTHER ==
[2017-06-14 13:43] LABS: INTERNATIONAL RATION (INR) 2.91; PROTHROMBIN TIME 31.8 SEC (11.4-15.4)
== END ==
LOC: OD 13:00
PROVIDERS: ATTEND Internal Medicine
DX: I48.91 Unspecified atrial fibrillation (principal); Z79.01 Long term (current) use of anticoagulants
CPT/HCPCS: 36415; 85610

== ENCOUNTER → 2017-06-28 | Outpatient (CLI) | payer MEDICARE, OTHER ==
[2017-06-28 15:01] LABS: INTERNATIONAL RATION (INR) 2.04; PROTHROMBIN TIME 24.1 SEC (11.4-15.4)
== END ==
LOC: OD 13:59
PROVIDERS: ATTEND Internal Medicine
DX: I48.91 Unspecified atrial fibrillation (principal); Z79.01 Long term (current) use of anticoagulants
CPT/HCPCS: 36415; 85610

== ENCOUNTER → 2017-07-27 | Outpatient (CLI) | payer MEDICARE, OTHER ==
[2017-07-27 16:20] LABS: INTERNATIONAL RATION (INR) 1.99; PROTHROMBIN TIME 23.6 SEC (11.4-15.4)
== END ==
LOC: OD 15:24
PROVIDERS: ATTEND Internal Medicine
DX: I48.91 Unspecified atrial fibrillation (principal)
CPT/HCPCS: 36415; 85610

== ENCOUNTER → 2017-08-03 | Outpatient (CLI) | payer MEDICARE, OTHER ==
[2017-08-03 15:05] LABS: INTERNATIONAL RATION (INR) 1.83; PROTHROMBIN TIME 22.1 SEC (11.4-15.4)
== END ==
LOC: OD 13:51
PROVIDERS: ATTEND Internal Medicine
DX: I48.91 Unspecified atrial fibrillation (principal)
CPT/HCPCS: 36415; 85610

== ENCOUNTER → 2017-08-17 | Outpatient (CLI) | payer MEDICARE, OTHER ==
[2017-08-17 15:45] LABS: INTERNATIONAL RATION (INR) 2.49; PROTHROMBIN TIME 28.1 SEC (11.4-15.4)
== END ==
LOC: OD 13:51
PROVIDERS: ATTEND Internal Medicine
DX: I48.91 Unspecified atrial fibrillation (principal)
CPT/HCPCS: 36415; 85610

== ENCOUNTER → 2017-09-14 | Outpatient (CLI) | payer MEDICARE, OTHER ==
[2017-09-14 14:45] LABS: INTERNATIONAL RATION (INR) 3.39; PROTHROMBIN TIME 35.8 SEC (11.4-15.4)
== END ==
LOC: OD 13:58
PROVIDERS: ATTEND Internal Medicine
DX: I48.91 Unspecified atrial fibrillation (principal); Z79.01 Long term (current) use of anticoagulants
CPT/HCPCS: 36415; 85610

== ENCOUNTER 2017-09-19 01:40 | Emergency (ER) | payer MEDICARE, OTHER ==
[2017-09-19] MEDS ORDERED: NORMAL SALINE 250 ML IV PRN (02:04)
[2017-09-19] MEDS ORDERED: PHYTONADIONE INJ 10 MG/1 ML AMPULE IV ONE (02:09)
--- NOTE | 2017-09-19 02:15 | RADIOLOGY REPORT (SQ) ---
EXAM DESCRIPTION: CT of the head without contrast CLINICAL HISTORY: WEBB/ stroke-like SXs COMPARISON: None available TECHNIQUE: Axial CT of the head obtained from the skull apex to the skull base without contrast. FINDINGS: There is a 4.4 x 4.0 cm intra-axial hemorrhage involving the right temporal lobe with surrounding edema producing 0.8 cm right to left midline shift as well as effacement of the rightward aspect of the suprasellar cistern compatible with uncal herniation. There is a component of extra-axial hemorrhage as well measuring 5 mm in width along the right lateral convexity compatible with subdural hemorrhage. There is also a component of subarachnoid hemorrhage within the sylvian fissure. The ventricular system is nondilated this time with no definite evidence of intraventricular hemorrhage. No definite acute abnormalities of the cerebellum or brainstem. The visualized paranasal sinuses and the mastoids are clear. No skull fracture identified. Visualized orbits and globes are unremarkable. DLP: 854.64 mGy-cm IMPRESSION: 1. There is a 4.4 x 4.0 cm intra-axial hemorrhage involving the right temporal lobe with surrounding edema producing 0.8 cm right to left midline shift as well as effacement of the rightward aspect of the suprasellar cistern compatible with uncal herniation. 2. Extra-axial hemorrhage measuring 5 mm in width along the right lateral convexity compatible with subdural hemorrhage. 3. Subarachnoid hemorrhage within the right sylvian fissure. Urgent finding reported to Dr. Talyor at 09/19/2017 1:12 AM CDT This exam was performed according to our departmental dose-optimization program, which includes automated exposure control, adjustment of the mA and/or kV according to patient size and/or use of iterative reconstruction technique.
[2017-09-19 02:17] LABS: ABSOLUTE BASOPHILS # (AUTO) 0.1 10^3/uL (0.0-0.2); ABSOLUTE LYMPHOCYTES (AUTO) 1.1 10^3/uL (0.5-4.7); ABSOLUTE MONOCYTES (AUTO) 0.4 10^3/uL (0.1-1.4); ABSOLUTE NEUT (AUTO) 10.8 10^3/uL (1.7-8.2); BASOPHILS % (AUTO) 0.8 % (0-2); HEMOGLOBIN 16.6 g/dL (12.0-15.5); MEAN CORPUSCULAR HEMOGLOBIN 35.5 pg (27.0-33.4); MEAN CORPUSCULAR HGB CONC 34.6 g/dL (32.0-36.0); MEAN CORPUSCULAR VOLUME 103 fl (80-97); MONOCYTES % (AUTO) 3.2 % (3-13); PLATELET COUNT 161 10^3/uL (150-450); RED BLOOD COUNT 4.67 10^6/uL (3.72-5.28); RED CELL DISTRIBUTION WIDTH 12.9 % (11.5-14.0); TOTAL CELLS COUNTED % (AUTO) 100 %; WHITE BLOOD COUNT 12.5 10^3/uL (4.0-10.5)
[2017-09-19] MEDS ORDERED: MANNITOL 25% INJ 12.5 GM/50 ML VIAL IV ONE (02:21)
--- NOTE | 2017-09-19 02:21 | ER Document Report ---
ED General - General Chief Complaint: S/S of Possible Stroke Stated Complaint: HEADACHE Cannot obtain history due to: Unstable vital signs, Altered mental status Notes: Patient is a 76-year-old female with a past medical history of atrial fibrillation currently anticoagulated on warfarin, history of pacemaker placement, CHF, hypertension, hyperlipidemia, and an dependent diabetes who presents confused, left-sided neglect, complaining of a headache with associated vomiting. The history is entirely provided by the daughter and at the bedside as the patient is lethargic, confused and unable to provide meaningful history. There reported approximately 2030 tonight the patient began complaining of a severe headache and had multiple episodes of associated vomiting. They checked on her at regular intervals and at 0100 they found her sitting on the ground in the bathroom confused and refusing to use the left side of her body. They placed the patient in the personal vehicle and subsequently transported to the emergency department. She vomited multiple times since arriving to the hospital. He denies any history of similar symptoms in the past. They are uncertain whether or not she hit her head when she fell. TRAVEL OUTSIDE OF THE [place] IN LAST 30 DAYS: No - Related Data Allergies/Adverse Reactions: No Known Allergies Allergy (Verified 09/18/16 15:56) Past Medical History - General Information source: Relative - Social History Smoking Status: Never Smoker Frequency of alcohol use: None Drug Abuse: None Lives with: Family Family History: Reviewed & Not Pertinent - Past Medical History Cardiac Medical History: Reports: Hx Atrial Fibrillation - On Coumadin, Hx Congestive Heart Failure - Reported; no echocardiogram results in our system., Hx Hypercholesterolemia, Hx Hypertension Denies: Hx DVT, Hx Heart Attack, Hx Pulmonary Embolism Pulmonary Medical History: Denies: Hx Asthma, Hx COPD, Hx Sleep Apnea Neurological Medical History: Denies: Hx Seizures Endocrine Medical History: Reports: Hx Diabetes Mellitus Type 2. Denies: Hx Diabetes Mellitus Type 1, Hx Hyperthyroidism, Hx Hypothyroidism Renal/ Medical History: Reports: Hx Renal Insufficiency. Denies: Hx Peritoneal Dialysis GI Medical History: Denies: Hx Cirrhosis, Hx Gastroesophageal Reflux Disease, Hx Hepatitis Musculoskeltal Medical History: Denies Hx Arthritis Psychiatric Medical History: Denies: Hx Depression Infectious Medical History: Denies: Hx C-Diff, Hx Hepatitis, Hx MRSA Past Surgical History: Reports: Hx Breast Surgery - right masectomy, Hx Cardiac Surgery - pacemaker, Hx Hysterectomy - Immunizations Hx Diphtheria, Pertussis, Tetanus Vaccination: Yes Hx Pneumococcal Vaccination: 01/16/13 Review of Systems - Review of Systems -: Yes ROS unobtainable due to patient's medical condition Physical Exam - Vital signs Vitals: Temp Pulse Resp Pulse Ox 98.0 F 72 16 91 L 09/19/17 01:46 09/19/17 01:46 09/19/17 01:46 09/19/17 01:46 Interpretation: Hypoxic Notes: PHYSICAL EXAMINATION: GENERAL: Ill in appearance, lethargic HEAD: Atraumatic, normocephalic. EYES: Pupils equal round and reactive to light, extraocular movements intact, sclera anicteric, conjunctiva are normal. ENT: nares patent, oropharynx clear without exudates. Moderately dry mucous membranes. NECK: Normal range of motion, supple without lymphadenopathy LUNGS: Breath sounds clear to auscultation bilaterally and equal. No wheezes rales or rhonchi. HEART: Irregularly irregular rhythm without murmurs ABDOMEN: Soft, nontender, normoactive bowel sounds. No guarding, no rebound. No masses appreciated. EXTREMITIES: no pitting or edema. No cyanosis. NEUROLOGICAL: Complete left-sided neglect. 5 out of 5 strength both distally and proximally in the right upper and lower extremity. Gaze will not cross midline to the left. Pupils are 3 mm, sluggishly reactive bilaterally. No facial droop. Tongue protrudes midline. Patient is lethargic, does answer questions but is slow to do so. PSYCH: Lethargic SKIN: Warm, Dry, normal turgor, no rashes or lesions noted. Course - Re-evaluation Re-evalutation: 09/19/17 02:00 Patient presents with several hours of a progressively worsening headache, found down in her bathroom by family at approximately 0100. Patient was immediately taken to CT scan. CT does show a large right IPH in the temporal lobe with associated right to left shift. There are also signs of vasogenic edema. Small amount of subdural and subarachnoid blood also noted. Patient was immediately assessed upon return to the ED. She has near complete left sided neglect. Full 5/5 strength both distally and proximally on the right. Her eyes will not cross midline. We will immediately begin reversing the patient's adequate correction with vitamin K 5 mg IV as well as FFP. We have contacted the blood bank and asked him to immediately begin following and bring the FFP as fast as possible to the emergency department. I have updated the family at the bedside and shown them the CT scan and explained the very grave nature of this diagnosis and the patient's very high probability of a poor outcome in this setting. Will arrange for transfer as soon as possible. 09/19/17 02:24 I have discussed with the call the nurse practitioner working under Dr. Villa at [facility] and they have accepted the patient for transfer. We have discussed management plans and I am in agreement with Ana Rosa that we will begin mannitol 1 g/kg followed by 1 L bolus. We will also intubate the patient has although she is currently protecting her airway and following commands in the right side of her body, she is hypoventilating, saturating 92% on room air, and I anticipate that she will require an airway very soon. Intubation will also allow me to hyperventilate the patient. 09/19/17 02:53 Mannitol is infusing, Cherry catheter has been placed. Patient is on a nonrebreather currently to pre-oxygenate for intubation. Vitamin K 5 mg has been administered. We are waiting FFP to be delivered from the blood bank and have contacted them and they report they are currently following it. Patient continues to have complete left-sided neglect, continues to purposely move the right upper and lower extremities. We currently have 3 points of IV access. Patient will be placed on a propofol infusion after intubation for sedation. Her blood pressure is elevated will place a nicardipine drip. Unfortunately it sounds as if air transport will not be available for this patient due to weather. 09/19/17 03:40 Documentation is delayed as I have been at the patient's bedside managing care and discussing with family. Patient was successfully intubated on first pass attempt using etomidate and succinylcholine. Propofol infusion started thereafter which did control patient's brief period of hypotension after intubation. Patient has been noted postintubation to have intermittent decerebrate posturing. Pupils remain 3 mm, sluggishly reactive bilaterally. She is currently being hyperventilated targeting PCO2 range between 30 and 35. Mannitol has been infused in the 1 L bolus is infusing currently. FFP has been initiated. I have reviewed the patient's overall poor prognosis at length with the family who has verbalized understanding. Will continue to monitor closely. 09/19/17 04:06 Transport has arrived for patient transfer. She is in critical condition but appropriate for critical care transport at this time point. - Vital Signs Vital signs: Temp Pulse Resp BP Pulse Ox 98.0 F 72 16 91 L 09/19/17 01:46 09/19/17 01:46 09/19/17 01:46 09/19/17 01:46 - Diagnostic Test Radiology reviewed: Image reviewed, Reports reviewed Radiology results interpreted by me: 09/19/17 02:10 Ct head: Large right temporal intraparenchymal hemorrhage with right to leftward shift. - EKG Interpretation by Me Additional EKG results interpreted by me: 09/19/17 02:27 Ventricularly paced rhythm rate 65. QTC 417. Procedures - Intubation Orotracheal Airway evaluation: Normal anatomy Mallampati Classification: Class 1 Medications: Etomidate, Succinylcholine Intubation method: Nasotracheal Blade type: Ray Blade size: 4 ETT size: 7.5 ETT secured at: Lips ETT secured at (cm): 22 Breath Sounds after Intubation: Equal End tidal CO2 confirmed: Yes Ventilator settings: SIMV Tidal volume: 450 FiO2: 50 Respirations: 22 PEEP: 5 Post Intubation Xray: Yes Intubation Complications: No complications Critical Care Note - Critical Care Note Total time excluding time spent on procedures (mins): 78 Comments: Critical care time spent obtaining history from patient or surrogate, discussions with consultants, development of treatment plan with patient or surrogate, evaluation of patient's response to treatment, examination of patient , ordering and performing treatments and interventions, ordering and review of laboratory studies, re-evaluation of patient's condition, ordering and review of radiographic studies and review of old charts Discharge - Discharge Clinical Impression: Intraparenchymal hemorrhage of brain, Left-sided neglect, Hemorrhagic stroke, Anticoagulated Vomiting Qualifiers: Vomiting type: unspecified Vomiting Intractability: non-intractable Nausea presence: with nausea Qualified Code(s): R11.2 - Nausea with vomiting, unspecified Condition: Critical Referrals: COLIN LUIS MD [Primary Care Provider] - Follow up as needed
[2017-09-19 02:24] LABS: INTERNATIONAL RATION (INR) 2.36; PARTIAL THROMBOPLASTIN TIME 34.6 SEC (23.5-35.8)
[2017-09-19] MEDS ORDERED: EPTIFIBATIDE 0 MG/0 ML INFUS..BTL IV ONE (02:25)
[2017-09-19 02:26] LABS: PROTHROMBIN TIME 26.9 SEC (11.4-15.4)
[2017-09-19] MEDS ORDERED: MANNITOL 500 ML IV ONE (02:26)
[2017-09-19] MEDS ORDERED: SUCCINYLCHOLINE CHLORIDE INJ 200 MG/10 ML VIAL IV ONE (02:26)
[2017-09-19] MEDS ORDERED: NORMAL SALINE 1000 ML 1,000 ML IV ONE (02:26)
[2017-09-19] MEDS ORDERED: ETOMIDATE INJ/PF 20 MG/10 ML SDV IV ONE ×2 (02:26→02:28)
[2017-09-19] MEDS ORDERED: PROPOFOL 1,000 MG/100 ML INFUS..BTL IV PRN (02:52)
[2017-09-19 02:53] LABS: ALANINE AMINOTRANSFERASE 38 U/L (9-52); ALBUMIN 4.7 g/dL (3.5-5.0); ALKALINE PHOSPHATASE 95 U/L (38-126); ANION GAP 14 (5-19); ASPARTATE AMINO TRANSFERASE 63 U/L (14-36); BILIRUBIN,DIRECT 0.5 mg/dL (0.0-0.4); BLOOD UREA NITROGEN 27 mg/dL (7-20); CALCIUM 10.7 mg/dL (8.4-10.2); CARBON DIOXIDE 27 mmol/L (22-30); CHLORIDE 103 mmol/L (98-107); GLUCOSE 195 mg/dL (75-110); POTASSIUM 4.6 mmol/L (3.6-5.0); SODIUM 143.7 mmol/L (137-145); TOTAL PROTEIN 8.6 g/dL (6.3-8.2)
--- NOTE | 2017-09-19 03:35 | RADIOLOGY REPORT (SQ) ---
EXAM DESCRIPTION: Single view of the chest CLINICAL HISTORY: AMS COMPARISON: None. FINDINGS: Single frontal view of the chest. Cardia megaly. Left-sided pacemaker. Endotracheal tube with tip 3 cm above the shikha. NG tube with tip below the diaphragm. Postoperative change of the right axillary region. No consolidation, pneumothorax, or pleural effusion. Low lung volumes. No displaced rib fractures identified. Upper abdominal soft tissues are unremarkable. IMPRESSION: 1. Endotracheal tube and NG tube in appropriate position. Cardiomegaly.
[2017-09-19 03:36] LABS: ARTERIAL BLOOD BASE EXCESS -6.2 mmol/L; ARTERIAL BLOOD FIO2 60%; ARTERIAL BLOOD H2CO3 1.16 mmol/L (1.05-1.35); ARTERIAL BLOOD HCO3 19.3 mmol/L (20-26); ARTERIAL BLOOD O2 SATURATION 96.7 % (94-98); ARTERIAL BLOOD PCO2 38.6 mmHg (35-45); ARTERIAL BLOOD PH 7.32 (7.35-7.45); ARTERIAL BLOOD PO2 94.2 mmHg (80-100); ARTERIAL BLOOD TOTAL CO2 20.5 mmol/L (21-25)
[2017-09-19 04:07] VITALS: BP 123/58
[2017-09-19] MEDS ORDERED: PROPOFOL 1,000 MG/100 ML INFUS..BTL IV ONE (04:10)
[2017-09-19] MEDS ORDERED: SUCCINYLCHOLINE CHLORIDE INJ 200 MG/10 ML VIAL ONE (05:00)
--- NOTE | 2017-09-19 07:21 | EKG REPORT ---
SEVERITY:- ABNORMAL ECG - VENTRICULAR-PACED RHYTHM : Confirmed by: Kimberly Knowles MD 19-Sep-2017 07:20:43
== END 2017-09-19 04:30 | disposition short-term general hospital (02) ==
LOC: ER 01:40
PROC: 0BH17EZ Insertion of Endotracheal Airway into Trachea, Via Natural or Artificial Opening (ICD-10-PCS; principal; 2017-09-19)
DX: S06.360A Traumatic hemorrhage of cerebrum, unspecified, without loss of consciousness, initial encounter (principal); R41.4 Neurologic neglect syndrome; R11.2 Nausea with vomiting, unspecified; Z79.01 Long term (current) use of anticoagulants; R51 Headache; R41.82 Altered mental status, unspecified; R53.83 Other fatigue; Z95.0 Presence of cardiac pacemaker; I48.91 Unspecified atrial fibrillation; I50.9 Heart failure, unspecified; I10 Essential (primary) hypertension; E78.5 Hyperlipidemia, unspecified; E11.9 Type 2 diabetes mellitus without complications; W19.XXXA Unspecified fall, initial encounter; Y92.002 Bathroom of unspecified non-institutional (private) residence as the place of occurrence of the external cause
CPT/HCPCS: 93005; 36600 ×2; 99291; 99292; 51702; 96375; 96365; 96366; 86900; 86901; 36415; 36430; 82962; 82803; 85025; 85610; 85730; 80053; 84484; 71045; 70450; 94660; 93010; 31500; P9017; J2704; J3430; J0330; J2150; J7030; J3490